=== PATIENT | female | born 1940 | race Caucasian/White ===

== ENCOUNTER → 2016-07-19 | Outpatient (CLI) | payer MEDICARE, OTHER | END | disposition home or self-care (01) | LOC: GMAH 12:03 | PROVIDERS: ATTEND Family Medicine | DX: E03.9 Hypothyroidism, unspecified (principal); E78.2 Mixed hyperlipidemia ==

== ENCOUNTER → 2016-11-07 | Outpatient (CLI) | payer MEDICARE, OTHER ==
--- NOTE | 2016-11-07 13:59 | MAM ---
History: Well woman exam. Date of exam: 11/07/2016 Services provided: Bilateral full field digital screening mammography. CAD, the images were reviewed with R2 computer aided detection. FINDINGS: Glandular tissue is scattered glandular contour. Comparison with 2013 exam. No dominant mass, architectural distortion or clustered microcalcification. IMPRESSION: Benign exam Recommendation: Routine annual mammography BIRAD CATEGORY: 2 BENIGN Electronically signed by: Teressa Patel MD 11/07/2016 1:59 PM CDT Workstation: [id number]
== END | disposition home or self-care (01) ==
LOC: MAMMO 09:39
PROVIDERS: ATTEND Family Medicine
DX: Z12.31 Encounter for screening mammogram for malignant neoplasm of breast (principal)

== ENCOUNTER → 2017-07-30 | Outpatient (CLI) | payer MEDICARE, OTHER | LOC: GMAH 10:44 | PROVIDERS: ATTEND Family Medicine | DX: E03.9 Hypothyroidism, unspecified (principal); E78.2 Mixed hyperlipidemia; I10 Essential (primary) hypertension ==

== ENCOUNTER → 2017-09-22 | Outpatient (CLI) | payer MEDICARE, OTHER ==
--- NOTE | 2017-09-22 09:18 | RAD ---
EXAM DESCRIPTION: Hand,Right 3 Views CLINICAL HISTORY: PAIN IN RIGHT HAND COMPARISON: None Available. TECHNIQUE: AP, LATERAL, AND OBLIQUE FINDINGS: Three-view right hand shows no fracture or dislocation. Moderate narrowing of the DIP joints. There is no bone lesion. Osteoarthritic narrowing of the first metacarpal phalangeal joint is seen with degenerative changes of the lateral carpus and spurring at the radial styloid. There is calcification of the right triangular fibrocartilage and narrowing of radiocarpal joint. Mild narrowing of the metacarpal phalangeal joints, second through fifth. DIP and PIP joint space narrowing of mild to moderate degree is seen and the lateral view shows dorsal spurring at the DIP joints. IMPRESSION: Degenerative changes as described. Electronically signed by: Kole Murdock MD 09/22/2017 9:17 AM CDT
== END ==
LOC: RAD 08:05
PROVIDERS: ATTEND Orthopaedic Surgery
DX: M79.644 Pain in right finger(s) (principal)

== ENCOUNTER → 2017-10-07 | Outpatient (CLI) | payer MEDICARE, OTHER | LOC: RESP 10-06 08:43 | PROVIDERS: ATTEND Orthopaedic Surgery | DX: Z01.818 Encounter for other preprocedural examination (principal) ==

== ENCOUNTER 2017-10-21 05:47 | Day surgery (SDC) | payer MEDICARE, OTHER ==
--- NOTE | 2017-10-20 09:45 | HP ---
CHIEF COMPLAINT: Right third digit pain. HISTORY OF PRESENT ILLNESS: Ms. Chi is a 77-year-old female with a history of pain in the right third digit. The pain has been there for quite some time and has been locking on her as well. Because of the pain and the locking, she has requested operative intervention. After discussing the risks, benefits and alternatives to that, the patient has given informed consent for trigger finger release. PAST SURGICAL HISTORY: 1. Hysterectomy. 2. Tonsillectomy. 3. Hemorrhoidectomy. MEDICATIONS: 1. Simvastatin. 2. Levothyroxine. 3. Benadryl. ALLERGIES: NO KNOWN DRUG ALLERGIES. CODE STATUS: Full code. IMMUNIZATIONS: Up to date. SOCIAL HISTORY: The patient does not drink, smoke or use any illicit drugs. FAMILY HISTORY: None pertinent to today's complaint. REVIEW OF SYSTEMS: Negative except as indicated in the History of Present Illness. PHYSICAL EXAMINATION: VITAL SIGNS: Blood pressure 130/81. Pulse 88. Height 5'6". Weight 171 pounds. MENTAL STATUS: The patient is awake, alert, and is able to give a good history and participate in the physical. The patient is oriented to person, place and time. SKIN: Normal tone and turgor. MUSCULOSKELETAL: She has tenderness over the A1 ahsan of the third digit with palpable clicking. Sensation is intact. It is warm and well perfused. She does have some difficulty at terminal extension secondary to discomfort and stiffness. Otherwise, she has intact range of motion in all digits. ASSESSMENT: 1. Trigger finger. PLAN: The plan at this point is for trigger finger release. We have discussed the risks, benefits, and alternatives to that and the patient has given informed consent. #[id number] [facility]
[2017-10-21] MEDS ORDERED: SODIUM CHL 0.9% 100ML MINI-BAG 100 ML IVPB ONE (06:58)
[2017-10-21] MEDS ORDERED: LACTATED RINGERS 1,000 ML ONE (06:58)
[2017-10-21] MEDS ORDERED: ceFAZolin SODIUM 1 GM VIAL ONE (06:59)
[2017-10-21] MEDS ORDERED: BUPIVACAINE 0.25% INJ 30 ML VIAL INJ ONE (07:23)
[2017-10-21] MEDS ORDERED: LIDOCAINE 1% 50 ML VIAL INJ ONE (07:23)
[2017-10-21] MEDS ORDERED: fentaNYL CITRATE INJ 50 MCG/ML AMP ONE (08:20)
[2017-10-21] MEDS: VANCOMYCIN HCL INJ 1,000 MG VIAL IVPB ONE ×2 (08:50→08:56)
[2017-10-21] MEDS: ceFAZolin SODIUM 1 GM VIAL ONE ×2 (08:50→08:56)
[2017-10-21] MEDS ORDERED: LIDOCAINE 1% 10 ML VIAL INJ ONE (09:00)
[2017-10-21] MEDS ORDERED: PROPOFOL 200 MG/20 ML VIAL IV ONE (09:00)
[2017-10-21 10:48] VITALS: BP 179/90; TEMP 96.5; O2SAT 96
--- NOTE | 2017-10-22 09:14 | OP ---
DATE OF PROCEDURE: 10/21/17 PREOPERATIVE DIAGNOSIS: 1. Trigger finger. POSTOPERATIVE DIAGNOSIS: 1. Trigger finger. PROCEDURE: 1. Trigger finger release. SURGEON: Romain Velez MD. TEAM MEMBER: Jerman Randall CST, SA-C. ANESTHESIA: Local with sedation. COMPLICATIONS: None. FINDINGS: Triggering at the A1 ahsan of the third digit. INDICATION: Ms. Chi has a long history of triggering at the A1 ahsan. Because of her triggering, pain and ongoing locking, she has requested operative intervention. After discussing the risks, benefits and alternatives to operative therapy, the patient has given informed consent for that. PROCEDURE: The patient was brought to the Operating Room and placed in the supine position. Sedation was administered and local anesthetic was injected into the operative area. Following injection, the arm was sterilely prepped and draped. A transverse incision was made directly overlying the A1 ahsan of the triggering digit and blunt dissection was carried down to the ahsan while protecting the digital nerves. After identification of the ahsan, the ahsan was transected and a [place] elevator was passed both proximally and distally to ensure complete release. The finger was flexed and extended and there was no evidence of locking or clicking. The wound was thoroughly irrigated and closed with Nylon suture. A sterile dressing was placed and the patient was taken to the Day Surgery Unit. POSTOPERATIVE INSTRUCTIONS: She has been encouraged to do range of motion of the digits and she will followup with us in 2 days. #[id number] [facility]
== END 2017-10-21 10:12 | disposition home or self-care (01) ==
LOC: AMB 05:47
PROVIDERS: ATTEND Orthopaedic Surgery
DX: M65.331 Trigger finger, right middle finger (principal); Z79.899 Other long term (current) drug therapy
CPT/HCPCS: 01810; 26055; J0690; J3010; J3370; J3490; J7050; J7120

== ENCOUNTER → 2018-07-24 | Outpatient (CLI) | payer MEDICARE, OTHER ==
--- NOTE | 2018-07-24 15:22 | RAD ---
EXAM DESCRIPTION: Knee,Left Complete CLINICAL HISTORY: 78 years Female, LEFT KNEE PAIN. PRIMARY OSTEOARTHRITIS COMPARISON: February 06, 2016 FINDINGS: Four views of the left knee show no acute fracture or malalignment. Moderate to moderately advanced tricompartmental degenerative changes are noted including joint space narrowing and osteophyte formation, worse in the patellofemoral compartment with [id number] alignment laterally, unchanged from January,. No joint effusion. Chondrocalcinosis in the medial compartment is also likely of degenerative origin. IMPRESSION: Advanced degenerative changes in the patellofemoral compartment with less advanced degenerative changes in the medial and lateral compartments. No acute left knee abnormality. Electronically signed by: Carlos Keller MD 07/24/2018 3:19 PM [facility]
--- NOTE | 2018-07-24 15:24 | RAD ---
EXAM DESCRIPTION: Pelvis CLINICAL HISTORY: LEFT HIP PAIN. COMPARISON: None. IMPRESSION: Single AP supine view of the pelvis shows diffuse osteopenia the osseous structures. No acute fracture, focal bone destruction, or joint dislocation is seen. Moderate osteoarthritic changes of the hips are seen left greater than right. Severe disc degenerative changes of the lumbar spine are noted. Evaluation for fracture is limited given the degree of osteopenia. If high clinical concern for acute fracture, correlation with MRI recommended given its greater sensitivity in the osteopenic patient. If the patient cannot tolerate MRI imaging or more urgent imaging is required, CT could be performed, however it is less sensitive in the osteopenic patient when compared to MRI. Electronically signed by: Caleb Krueger MD 07/24/2018 3:21 PM [facility]
== END ==
LOC: RESP 09:41
PROVIDERS: ATTEND Orthopaedic Surgery
DX: Z01.818 Encounter for other preprocedural examination (principal); M17.12 Unilateral primary osteoarthritis, left knee; M16.0 Bilateral primary osteoarthritis of hip; M51.36 Other intervertebral disc degeneration, lumbar region; M25.552 Pain in left hip

== ENCOUNTER 2018-08-25 05:37 | Inpatient (IN) | payer MEDICARE, OTHER ==
--- NOTE | 2018-08-24 09:24 | HP ---
CHIEF COMPLAINT: Left knee pain. HISTORY OF PRESENT ILLNESS: Ms. Chi is an 78-year-old female with a history of pain in the knee that has been refractory to conservative measures. She has had no trauma related to this, denies any radiation of pain and denies any neurologic symptoms. She has had injections as well as therapy and ongoing anti-inflammatory use, however, has failed to gain relief. Because of her ongoing symptoms, she has requested operative intervention. After discussing the risks, benefits and alternatives to that, she has given informed consent. PAST SURGICAL HISTORY: 1. Hysterectomy. 2. Tonsillectomy. 3. Herniorrhaphy. 4. Trigger finger release. MEDICATIONS: 1. Simvastatin. 2. Levothyroxine. 3. Benadryl. ALLERGIES: NO KNOWN DRUG ALLERGIES. SOCIAL HISTORY: The patient does not drink, smoke or use any illicit drugs. REVIEW OF SYSTEMS: Negative except as indicated in the History of Present Illness. PHYSICAL EXAMINATION: VITAL SIGNS: Blood pressure 152/93. Pulse 99. Height 5'6". Weight 177 pounds. MENTAL STATUS: The patient is awake, alert, and is able to give a good history and participate in the physical. The patient is oriented to person, place and time. SKIN: Normal tone and turgor. HEENT: Normocephalic, atraumatic. Pupils equal, round and reactive. Mucosal membranes are moist. NECK: Normal range of motion. No thyromegaly, no lymphadenopathy. CHEST: Normal respiratory excursion. CARDIAC: Regular rate and rhythm. No murmurs, rubs or gallops. MUSCULOSKELETAL: The bilateral upper extremities show full active range of motion. She has intact sensation and they are warm and well perfused. She has 5/5 strength, no crepitus and no deformity. There is no obvious malalignment. The right lower extremity shows full extension of the knee. She has no significant pain with range of motion of the hip. She has minor tenderness with range of motion of the knee as well as to palpation. Flexion is to 110 degrees. The left knee shows lack of about 5 degrees of extension. She has intact sensation. She flexes to about 105 degrees. She has no varus/valgus or anterior/posterior laxity. She has crepitus throughout her range of motion. IMAGING: X-rays show severe arthritis. ASSESSMENT: 1. Arthritis. PLAN: The plan at this point is for total knee arthroplasty. We have discussed the risks, benefits, and alternatives to that and the patient has given informed consent. [id number] [facility]
[2018-08-25] MEDS ORDERED: TRANEXAMIC ACID 1,000 MG/10 ML VIAL ONE ×2 (05:41→05:42)
[2018-08-25] MEDS ORDERED: ceFAZolin SODIUM 1 GM VIAL ONE ×2 (05:41→06:32)
[2018-08-25] MEDS ORDERED: SODIUM CHL 0.9% 100ML MINI-BAG 100 ML IVPB ONE (05:41)
[2018-08-25] MEDS ORDERED: VANCOMYCIN HCL INJ 1,000 MG VIAL IVPB ONE ×3 (05:41→19:23)
[2018-08-25] MEDS ORDERED: LACTATED RINGERS 1,000 ML ONE (05:41)
[2018-08-25] MEDS ORDERED: SODIUM CHLORIDE 0.9% 250ML 250 ML ONE ×3 (05:42→19:22)
[2018-08-25] MEDS ORDERED: SODIUM CHLORIDE 0.9% 100ML 100 ML IVPB ONE (05:42)
[2018-08-25] MEDS ORDERED: MIDAZOLAM INJ 2 MG/2 ML VIAL ONE (06:30)
[2018-08-25] MEDS ORDERED: MORPHINE SULFATE *EPIDURAL* 0.5 MG/ML VIAL ONE (06:30)
[2018-08-25] MEDS ORDERED: ACETAMINOPHEN IV 1000MG 100 ML ONE (06:31)
[2018-08-25] MEDS ORDERED: fentaNYL CITRATE INJ 50 MCG/ML AMP ONE (06:31)
[2018-08-25] MEDS ORDERED: ZOLPIDEM TARTRATE 5 MG TAB PO PRN (07:18)
[2018-08-25] MEDS ORDERED: NALOXONE HCL INJ 0.4 MG/ML VIAL IV PRN (07:18)
[2018-08-25] MEDS ORDERED: BENZOCAINE-MENTH LOZ (CEPACOL) 1 EA LOZ MT PRN (07:18)
[2018-08-25] MEDS ORDERED: MORPHINE SULFATE INJ 10 MG/ML VIAL IM PRN (07:18)
[2018-08-25] MEDS ORDERED: SODIUM CHLORIDE 0.9% (FLUSH) 10 ML SYG IV PRN (07:18)
[2018-08-25] MEDS ORDERED: ACETAMINOPHEN 325 MG TAB PO PRN (07:18)
[2018-08-25] MEDS ORDERED: PROMETHAZINE HCL INJ 12.5 MG in SODIUM CHLORIDE 0.9% 50ML 50 ML IVPB PRN (07:18)
[2018-08-25] MEDS ORDERED: MAGNESIUM HYDROXIDE 30 ML UD PO PRN (07:18)
[2018-08-25] MEDS ORDERED: DEX 5% W/NACL 0.45% 1000ML 1,000 ML IVS PRN (07:18)
[2018-08-25] MEDS ORDERED: MORPHINE SULFATE INJ 10 MG/ML VIAL IV PRN (07:18)
[2018-08-25] MEDS ORDERED: PROMETHAZINE HCL INJ 25 MG in SODIUM CHLORIDE 0.9% 50ML 50 ML IVPB PRN (07:18)
[2018-08-25] MEDS ORDERED: ONDANSETRON INJ 4 MG/2 ML VIAL IV PRN (07:18)
[2018-08-25] MEDS ORDERED: ACETAMINOPHEN 500 MG TAB PO PRN (07:18)
[2018-08-25] MEDS ORDERED: TRANEXAMIC ACID INJ 1,000 MG in SODIUM CHLORIDE 0.9% 100ML 100 ML IVPB ONE (07:18)
[2018-08-25] MEDS ORDERED: ALUMINUM & MAGNESIUM HYDROXIDE 30 ML UD PO PRN (07:18)
[2018-08-25] MEDS ORDERED: BISACODYL SUPPOSITORY 10 MG PR PRN (07:18)
[2018-08-25] MEDS ORDERED: MORPHINE PCA 1 MG/ML 100 ML BAG IVPB SCH (07:30)
[2018-08-25] MEDS ORDERED: BUPIVACAINE LIPOSOME 13.3 MG/ML VIAL INJ ONE (07:39)
[2018-08-25] MEDS: BUPIVACAINE LIPOSOME 13.3 MG/ML VIAL INJ ONE ×2 (07:40→08:41)
[2018-08-25] MEDS: BUPIVACAINE 0.5% 30 ML VIAL INJ ONE ×2 (07:40→08:41)
[2018-08-25] MEDS: VANCOMYCIN HCL INJ 1,000 MG VIAL IVPB ONE ×2 (07:40→08:45)
[2018-08-25] MEDS: ceFAZolin SODIUM 1 GM VIAL ONE ×2 (07:40→08:45)
[2018-08-25] MEDS ORDERED: ELECTROLYTE-A 1,000 ML IVS ONE (08:46)
[2018-08-25] MEDS ORDERED: ONDANSETRON INJ 4 MG/2 ML VIAL IV ONE (10:00)
[2018-08-25] MEDS ORDERED: PROPOFOL 200 MG/20 ML VIAL IV ONE (10:00)
[2018-08-25] MEDS ORDERED: MORPHINE PCA 1 MG/ML 100 ML BAG IVPB ONE (10:00)
[2018-08-25] MEDS ORDERED: LIDOCAINE 1% 10 ML VIAL INJ ONE (10:00)
[2018-08-25] MEDS ORDERED: ePHEDrine SULF 50 MG/ML IV ONE (10:00)
[2018-08-25] MEDS ORDERED: DEXAMETHASONE INJ 10 MG/ML VIAL IV ONE (10:00)
[2018-08-25] MEDS ORDERED: LACTATED RINGERS 1,000 ML IVS ONE (10:30)
[2018-08-25] MEDS: CELECOXIB 100 MG CAP PO SCH ×2 (12:35→17:39)
[2018-08-25] MEDS: IV SET AND CAP CHANGE INJ INJ SCH (12:44)
[2018-08-25] MEDS: MAGNESIUM OXIDE 400 MG TAB PO SCH (12:45)
[2018-08-25] MEDS ORDERED: diphenhydrAMINE HCL 50 MG/ML VIAL ONE (12:57)
[2018-08-25] MEDS: diphenhydrAMINE HCL 50 MG/ML VIAL IV PRN (13:06)
[2018-08-25] MEDS ORDERED: ceFAZolin SODIUM 2 GRAMS PREMI 50 ML IVPB ONE ×2 (15:34→19:23)
[2018-08-25] MEDS: ceFAZolin SODIUM 2 GRAMS PREMI 2 GM in PREMIX BAG 1 BAG IVPB SCH (15:42)
--- NOTE | 2018-08-25 16:09 | RAD ---
EXAM DESCRIPTION: Knee,Left 2 or More Views CLINICAL HISTORY: 78 yearsFemale, TKA COMPARISON: 07/24/2018 IMPRESSION: There are operative changes of a left total knee arthroplasty. Components appear in excellent alignment, with no complicating features. There is postoperative gas in the soft tissues. Electronically signed by: Gadiel Long MD 08/25/2018 4:06 PM CDT
--- NOTE | 2018-08-25 16:10 | RAD ---
EXAM DESCRIPTION: Fluoroscopy Up to 1Hr CLINICAL HISTORY: LEFT TKA COMPARISON: None. IMPRESSION: Spot fluoroscopic intraoperative view of the left knee during total knee arthroplasty was obtained. No extra exposure images are obtained. Less than 1 minute of intraoperative fluoroscopy time was utilized. Electronically signed by: Calbe Krueger MD 08/25/2018 4:07 PM CDT
[2018-08-25] MEDS: VANCOMYCIN HCL INJ 1,000 MG in SODIUM CHLORIDE 0.9% 250ML 250 ML IVPB SCH (17:44)
[2018-08-25] MEDS ORDERED: PANTOPRAZOLE SODIUM TAB 40 MG PO ONE (19:23)
[2018-08-25] MEDS ORDERED: ENOXAPARIN SODIUM 30 MG/0.3 ML SYG SUBCU ONE (19:23)
[2018-08-25] MEDS: NON-FORMULARY MEDICATION 1 EA MIS PO SCH (20:03)
[2018-08-25] MEDS: PANTOPRAZOLE SODIUM IV 40 MG VIAL IV SCH (20:37)
--- NOTE | 2018-08-25 20:59 | CONS ---
DATE OF CONSULTATION: 08/25/18 SUPERVISING PHYSICIAN: Jerzy Pappas M.D. REASON FOR CONSULTATION: Left total knee arthroplasty. HISTORY OF PRESENT ILLNESS: This is an 78 year-old female patient that has had a history of left knee pain for several years. It was actually recommended that she have a knee replacement 2 years ago. She tried conservative measures and they failed to relieve her pain. She requested Dr. Romain Velez for operative intervention for a left total knee arthroplasty. There were no intraoperative problems and I am seeing the patient in consultation postoperatively on the Medical/Surgical floor. PAST MEDICAL HISTORY: 1. Hyperlipidemia. 2. Hypertension. 3. Bilateral knee pain. 4. Hypothyroidism. 5. Gastroesophageal reflux disease. 6. Chronic constipation. PAST SURGICAL HISTORY: 1. Hysterectomy. 2. Tonsillectomy. 3. Trigger release surgery. 4. Cataract surgery. HOME MEDICATIONS: 1. Levothyroxine. 2. Multivitamins. 3. Temazepam. 4. Cascara sagrada. 5. Nexium. ALLERGIES: NO KNOWN DRUG ALLERGIES. FAMILY HISTORY: Heart problems and hypothyroidism. SOCIAL HISTORY: She is retired. She is . She denies smoking, ETOH or illicit drug use. REVIEW OF SYSTEMS: Negative except as per History of Present Illness. PHYSICAL EXAMINATION: VITAL SIGNS: Temperature 98.1, blood pressure 151/72, respiratory rate 20, O2 sat 98% on 2 liters nasal cannula. GENERAL: This is an 78 year-old female patient who looks younger than her stated age. She is in no acute distress. HEENT: Normocephalic and atraumatic. Pupils are equal and reactive. Oropharynx is clear. NECK: Supple without mass. RESPIRATORY: Essentially clear to auscultation bilaterally. HEART: Regular rate and rhythm. GASTROINTESTINAL: Abdomen is soft, nondistended, non-tender. Bowel sounds are positive. EXTREMITIES: She has a dressing to her left knee that is dry and intact. She has has an Iceman in place. Bilateral pedal pulses are palpable at +2. NEUROLOGIC: She is awake, alert and oriented times three. LABORATORY: There are no labs or films to report at this time. IMPRESSION: 1. Left knee pain secondary to osteoarthritis after failing conservative measures status post left total knee arthroplasty performed by Dr. Romain Velez, postoperative day #0. PLAN: We will continue present supportive care. Orthopedic issues will be per Dr. Romain Velez, orthopedic surgeon. She will begin her physical therapy for strengthening and conditioning tomorrow. I have also given her an additional dose of Protonix IV as she is quite worried about her GERD. She will restart her Nexium tomorrow. She also had been taking Cascara for chronic constipation for over [address] Barboza, her finisher denture, has okayed that she continue the use of that for her chronic constipation, so I have restarted that and she can take her own medications. I have also restarted all of her other home medications. We will continue to follow her closely and treat as needed. #[id number] [facility]
[2018-08-25] MEDS ORDERED: CASCARA SAGRADA PO SCH (21:00)
[2018-08-25] MEDS ORDERED: DOCUSATE CALCIUM 240 MG CAP PO SCH (21:00)
[2018-08-25] MEDS: ENOXAPARIN SODIUM 30 MG/0.3 ML SYG SUBCU SCH (23:00)
[2018-08-26] MEDS: TEMAZEPAM 15 MG CAP PO PRN (00:05)
[2018-08-26] MEDS: traMADol HCL 50 MG TAB PO PRN (04:59)
[2018-08-26] MEDS: VANCOMYCIN HCL INJ 1,000 MG in SODIUM CHLORIDE 0.9% 250ML 250 ML IVPB SCH (06:12)
[2018-08-26] MEDS: PANTOPRAZOLE SODIUM TAB 40 MG PO SCH (06:12)
[2018-08-26] MEDS ORDERED: ceFAZolin SODIUM 2 GRAMS PREMI 50 ML IVPB ONE (07:23)
[2018-08-26] MEDS: CELECOXIB 100 MG CAP PO SCH ×2 (07:35→17:11)
[2018-08-26] MEDS: ceFAZolin SODIUM 2 GRAMS PREMI 2 GM in PREMIX BAG 1 BAG IVPB SCH ×2 (08:08)
[2018-08-26] MEDS: SODIUM CHLORIDE 0.9% (FLUSH) 10 ML SYG IV SCH (08:14)
[2018-08-26] MEDS: LEVOTHYROXINE SODIUM 0.025 MG TAB PO SCH (09:22)
[2018-08-26] MEDS: MAGNESIUM OXIDE 400 MG TAB PO SCH (09:22)
[2018-08-26] MEDS: ENOXAPARIN SODIUM 30 MG/0.3 ML SYG SUBCU SCH ×2 (11:13→22:52)
[2018-08-26] MEDS: HYDROcodone 5MG/APAP 325MG 1 EA TAB PO PRN (13:37)
[2018-08-26] MEDS: CYCLOBENZAPRINE HCL 10 MG TAB PO PRN (14:03)
[2018-08-26] MEDS: diphenhydrAMINE HCL 50 MG/ML VIAL IV PRN (18:30)
--- NOTE | 2018-08-26 19:04 | PN ---
DATE: 08/26/18 SUPERVISING PHYSICIAN: Jerzy Pappas M.D. SUBJECTIVE: The patient is sitting up in her recliner in her hospital room. She is eating her meal. [place] that she did quite well during her physical therapy today and has had several issues with pain control, but her pain has been controlled for the last several hours and she feels much better. She has had no complaints of nausea, vomiting or diarrhea. She does have complaints of constipation but she has requested a Dulcolax suppository in addition to her routine Cascara. OBJECTIVE: VITAL SIGNS: She is afebrile at 97.8, heart rate 88, blood pressure 154/84, respiratory rate 16, O2 sat 98% on 2 liters nasal cannula. RESPIRATORY: Essentially clear to auscultation bilaterally. CARDIAC: Regular rate and rhythm. GASTROINTESTINAL: Abdomen is soft, nondistended, non-tender. Bowel sounds are positive. EXTREMITIES: She has a dressing to her left knee that is dry and intact. Bilateral pedal pulses are palpable at +2. NEUROLOGIC: She is awake, alert and oriented times three. LABORATORY: Hemoglobin and hematocrit are 12.5 and 38.6. All other labs and films have been reviewed via the EMR. ASSESSMENT: 1. Left knee pain secondary to osteoarthritis after failing conservative measures status post left total knee arthroplasty performed by Dr. Romain Velez, postoperative day #1. 2. Hypertension, stable on medications. 3. Hyperlipidemia. 4. Hypothyroidism. 5. Gastroesophageal reflux disease. 6. Chronic constipation. PLAN: We will continue present supportive care, including aggressive pulmonary hygiene. Orthopedic issues will be per Dr. Romain Velez, orthopedic surgeon. She will continue with physical therapy for strengthening and conditioning. Otherwise we will continue to monitor closely and follow as needed. [id number]
[2018-08-26] MEDS ORDERED: SODIUM PHOS/BIPHOS ENEMA ADULT 133 ML BTTL PR ONE (19:45)
[2018-08-26] MEDS: NON-FORMULARY MEDICATION 1 EA MIS PO SCH (20:14)
[2018-08-26] MEDS: PANTOPRAZOLE SODIUM IV 40 MG VIAL IV SCH (21:30)
[2018-08-27] MEDS: PANTOPRAZOLE SODIUM TAB 40 MG PO SCH (06:35)
--- NOTE | 2018-08-27 07:53 | PN ---
DATE: 08/25/18 POSTOPERATIVE CHECK SUBJECTIVE: Ms. Chi is doing well. He has no pain. OBJECTIVE: Afebrile. Vital signs stable. Dressing is clean, dry and intact. ASSESSMENT: Status post total knee arthroplasty. PLAN: The plan at this point is for her to continue with CPM and begin weightbearing as tolerated on postoperative day 1. #[id number] [facility]
--- NOTE | 2018-08-27 07:54 | PN ---
DATE: 08/26/18 SUBJECTIVE: Ms. Chi is doing well and her pain is being well controlled. OBJECTIVE: Afebrile. Vital signs stable. Dressing is clean, dry and intact. ASSESSMENT: Status post total knee arthroplasty. PLAN: The plan at this point is for her to begin weightbearing as tolerated today. #[id number] [facility]
--- NOTE | 2018-08-27 08:01 | OP ---
DATE OF PROCEDURE: 08/25/18 PREOPERATIVE DIAGNOSIS: 1. Osteoarthritis of the knee. POSTOPERATIVE DIAGNOSIS: 1. Osteoarthritis of the knee. PROCEDURE: 1. Total knee arthroplasty. SURGEON: Romain Velez MD. SCIENTOLOGIST: Jerman Randall CST, SA-C. ANESTHESIA: General anesthesia. COMPLICATIONS: None. FINDINGS: Severe osteoarthritis. INDICATION: Ms. Chi has a long history of knee pain that has been refractory to conservative measures. Because of the refractory nature of her pain, she has requested operative intervention. After discussing the risks, benefits and alternatives to that, the patient has given informed consent for total knee arthroplasty. PROCEDURE: The patient was brought to the Operating Room and placed in supine position. General anesthesia was induced and the patient's leg was sterilely prepped and draped. Following prepping and draping, the distal femur was exposed and using an intramedullary guide, the distal femoral cut was made. The appropriate sized cutting block was measured, pinned into place, and the anterior, posterior, and chamfer cuts were made. The ACL was transected and the tibia was subluxed. Both the medial and lateral menisci were removed. An intramedullary guide was used to make the proximal tibial cut. The appropriate sized base plate was placed and a trial polyethylene was placed. The trial femur was placed, the knee was reduced, and the knee was taken through a range of motion. The knee was stable in anterior, posterior, varus and valgus stress. The patella tracked anatomically without evidence of subluxation or dislocation. After trialing, the trial components were removed and the bony surfaces were thoroughly irrigated with saline. Following irrigation, the surfaces were dried and the final components were cemented into place. The excess cement was removed and the remaining cement was allowed to cure. The knee was again taken through a range of motion to confirm stability. The wound was then irrigated with saline and closure was performed using PDS to approximate the arthrotomy followed by closure of the subcutaneous tissues with a combination of running and interrupted Monocryl sutures. Sterile dressing was placed. The patient was awoken from anesthesia and taken to Recovery. POSTOPERATIVE PLAN: The patient will be weight-bearing as tolerated on postoperative day 1. COMPONENTS: [facility] Tri[facility] knee, size 4 femur, size 4 tibia, 9 mm insert. #[id number] [facility]
[2018-08-27] MEDS: MAGNESIUM OXIDE 400 MG TAB PO SCH (09:01)
[2018-08-27] MEDS: CELECOXIB 100 MG CAP PO SCH ×2 (09:01→17:17)
[2018-08-27] MEDS: LEVOTHYROXINE SODIUM 0.025 MG TAB PO SCH (09:01)
[2018-08-27] MEDS: SODIUM CHLORIDE 0.9% (FLUSH) 10 ML SYG IV SCH ×2 (09:02→21:08)
[2018-08-27] MEDS: ENOXAPARIN SODIUM 30 MG/0.3 ML SYG SUBCU SCH ×2 (09:07→23:10)
[2018-08-27] MEDS: HYDROcodone 5MG/APAP 325MG 1 EA TAB PO PRN ×2 (11:43→20:04)
--- NOTE | 2018-08-27 13:25 | PN ---
DATE: 08/27/18 SUBJECTIVE: Ms. Chi is doing well. She is up to a chair and has the knee bent at 90 degrees. OBJECTIVE: Afebrile. Vital signs stable. Wound is clean. There are no signs or symptoms of infection. ASSESSMENT: Status post total knee arthroplasty. PLAN: The plan at this point is for her to continue with weightbearing as tolerated. We will continue to work with her in therapy and she will be discharged when all goals are met. [facility][id number] [facility]
[2018-08-27] MEDS: NON-FORMULARY MEDICATION 1 EA MIS PO SCH (20:06)
[2018-08-27] MEDS: CYCLOBENZAPRINE HCL 10 MG TAB PO PRN (23:10)
[2018-08-28] MEDS ORDERED: LEVOTHYROXINE SODIUM 0.025 MG TAB ONE (02:44)
[2018-08-28] MEDS: HYDROcodone 5MG/APAP 325MG 1 EA TAB PO PRN ×2 (03:29→08:00)
[2018-08-28] MEDS: LEVOTHYROXINE SODIUM 0.025 MG TAB PO SCH (06:26)
[2018-08-28] MEDS: PANTOPRAZOLE SODIUM TAB 40 MG PO SCH (06:27)
--- NOTE | 2018-08-28 07:55 | PN ---
SUPERVISING PHYSICIAN: Lucas Pappas MD DATE: 08/27/18 SUBJECTIVE: The patient is sitting up in her bed. Her daughter is at the bedside. She has no complaints of nausea, vomiting, excessive pain, chest pain or shortness of breath. She does still complain of some constipation which is chronic in nature. She has had laxative today as well as an enema. She has had a small amount of stool, otherwise, minimal results. OBJECTIVE: VITAL SIGNS: Temperature 98.5. Heart rate 88. Blood pressure 121/74. Respiratory rate 16. O2 saturation 93% on room air. RESPIRATORY: Essentially clear to auscultation bilaterally. CARDIAC: Regular rate and rhythm. GASTROINTESTINAL: Abdomen is soft, nondistended, nontender. Bowel sounds are positive. EXTREMITIES: She has an Iceman and her CPM on her left leg. Her dressing to her left knee is dry and intact. Bilateral pedal pulses are palpable at +2. NEUROLOGIC: She is awake, alert and oriented times three. LABORATORY: There are no labs and films to report at this time. ASSESSMENT: 1. Left knee pain secondary to osteoarthritis after failing conservative measures status post left total knee arthroplasty performed by Dr. Romain Velez, postoperative day #2. 2. Hypertension, stable on medications. 3. Hyperlipidemia. 4. Hypothyroidism. 5. Gastroesophageal reflux disease. 6. Chronic constipation. PLAN: We will continue present supportive care. She will continue with physical therapy tomorrow for strengthening and conditioning. Orthopedic issues will be per Dr. Romain Velez, orthopedic surgeon. Encourage good pulmonary hygiene. She has several laxatives ordered as well as enema as needed for constipation. She will have [facility] after discharge with their physical therapy department. We will continue to monitor closely and follow as needed. #[id number] [facility]
[2018-08-28] MEDS: CELECOXIB 100 MG CAP PO SCH ×2 (07:59→18:11)
[2018-08-28] MEDS: MAGNESIUM OXIDE 400 MG TAB PO SCH (08:43)
[2018-08-28] MEDS: SODIUM CHLORIDE 0.9% (FLUSH) 10 ML SYG IV SCH ×2 (08:47→20:16)
--- NOTE | 2018-08-28 09:01 | PN ---
DATE: 08/28/18 SUBJECTIVE: Ms. Chi is doing well. She has been up ambulating. OBJECTIVE: Afebrile. Vital signs stable. Wound is clean. There are no signs or symptoms of infection. ASSESSMENT: Status post total knee arthroplasty. PLAN: The plan for Ms. Chi is for her to continue with her weightbearing status. She will likely be discharged in the next 1 to 2 days. [facility][id number] [facility]
[2018-08-28] MEDS: ENOXAPARIN SODIUM 30 MG/0.3 ML SYG SUBCU SCH ×2 (10:33→22:06)
[2018-08-28] MEDS: traMADol HCL 50 MG TAB PO PRN (13:39)
[2018-08-28] MEDS ORDERED: SODIUM PHOS/BIPHOS ENEMA ADULT 133 ML BTTL PR ONE ×2 (18:07→18:10)
[2018-08-28] MEDS: IV SET AND CAP CHANGE INJ INJ SCH (19:45)
[2018-08-28] MEDS: NON-FORMULARY MEDICATION 1 EA MIS PO SCH (20:15)
[2018-08-28] MEDS: CYCLOBENZAPRINE HCL 10 MG TAB PO PRN (20:16)
[2018-08-28] MEDS ORDERED: BISACODYL SUPPOSITORY 10 MG PR ONE (21:00)
[2018-08-28] MEDS ORDERED: MAGNESIUM HYDROXIDE 30 ML UD PO ONE (21:00)
[2018-08-28] MEDS: TEMAZEPAM 15 MG CAP PO PRN (22:03)
[2018-08-29] MEDS: HYDROcodone 5MG/APAP 325MG 1 EA TAB PO PRN (02:11)
[2018-08-29] MEDS: traMADol HCL 50 MG TAB PO PRN ×2 (02:16→08:30)
[2018-08-29] MEDS: LEVOTHYROXINE SODIUM 0.025 MG TAB PO SCH (05:47)
[2018-08-29] MEDS: PANTOPRAZOLE SODIUM TAB 40 MG PO SCH (05:47)
[2018-08-29] MEDS: CELECOXIB 100 MG CAP PO SCH (07:30)
[2018-08-29] MEDS: SODIUM CHLORIDE 0.9% (FLUSH) 10 ML SYG IV SCH (09:00)
--- NOTE | 2018-08-29 10:06 | PN ---
SUPERVISING PHYSICIAN: MARY TORRES MD DATE: 08/28/18 SUBJECTIVE: The patient is showing good response to her physical therapy. She has good control of her pain. She has had no other complaints. OBJECTIVE: VITAL SIGNS: Temperature 98.6. Pulse 83. Blood pressure 114/75. Respiratory rate 20. Saturation 96% on room air. GENERAL: Patient appears to be comfortable and in no acute distress. RESPIRATORY: Lungs clear to auscultation. CARDIAC: Regular rate and rhythm. GASTROINTESTINAL: Abdomen is soft, nontender. Bowel sounds are positive. EXTREMITIES: Left knee has an Iceman in place. Distal pulses strong. Capillary refill brisk. NEUROLOGIC: She is alert and oriented times three. LABORATORY: There are no additional laboratory studies.. ASSESSMENT: 1. Left knee pain secondary to osteoarthritis after failing conservative measures status post left total knee arthroplasty performed by Dr. Romain Velez, postoperative day #3. 2. Hypertension, stable on medications. 3. Hyperlipidemia. 4. Hypothyroidism. 5. Gastroesophageal reflux disease. 6. Chronic constipation. PLAN: We will continue to follow patient as she progresses through her physical therapy and strengthening and conditioning. Will continue to encourage pulmonary hygiene. She still requires enemas and laxatives for constipation. She has [facility]. Arrange for discharge with physical therapy and until she can transition to outpatient management, will continue to monitor and treat as needed. #[id number] [facility]
[2018-08-29] MEDS: MAGNESIUM OXIDE 400 MG TAB PO SCH (10:11)
[2018-08-29 10:25] VITALS: BP 129/72; TEMP 98.5; O2SAT 95
[2018-08-29] MEDS: ENOXAPARIN SODIUM 30 MG/0.3 ML SYG SUBCU SCH (11:00)
--- NOTE | 2018-09-14 09:24 | DS ---
SUPERVISING PHYSICIAN: Jerzy Pappas MD ADMISSION DIAGNOSIS: 1. Left knee pain secondary to osteoarthritis after failing conservative measures status post left total knee arthroplasty performed by Dr. Romain Velez, postoperative day #0. DISCHARGE DIAGNOSIS: 1. Left knee pain secondary to osteoarthritis after failing conservative measures status post left total knee arthroplasty performed by Dr. Romain Velez, postoperative day #4. 2. Hypertension, stable on medications. 3. Hyperlipidemia. 4. Hypothyroidism. 5. Gastroesophageal reflux disease. 6. Chronic constipation. REASON FOR HOSPITALIZATION: Ms. Chi is an 78-year-old female with a history of pain in the knee that has been refractory to conservative measures. She has had no trauma related to this, denies any radiation of pain and denies any neurologic symptoms. She has had injections as well as therapy and ongoing anti-inflammatory use, however, has failed to gain relief. Because of her ongoing symptoms, she has requested operative intervention. After discussing the risks, benefit s and alternatives to that, she has given informed consent. LABORATORY: Postoperative hemoglobin 12.5 and hematocrit 38.6. Preoperative drug screen showed positive for benzodiazepines, otherwise negative for other substances tested. HOSPITAL COURSE: Ms. Chi was admitted on 08/25/18 for a left total knee arthroplasty. She had no intraoperative complications, was showing good clinical response to treatment and was doing well with physical therapy. She had good pain control and was felt well enough to continue with outpatient management. PLAN: Ms. Chi was discharged on 08/29/18 with instructions to followup with Dr. Velez as scheduled on 09/11/18 at 10:00 AM. She was to continue with physical therapy with [facility]. She was to resume her home medications as instructed and told to return to the hospital or call Dr. Velez if she had any concerning symptoms. Discharge Diet: Regular as tolerated. Activities: As per physical therapy with utilizing the walker. Wound management as per Dr. Velez's instruction. She could shower but no tube bath. Prescriptions prescribed at discharge include: 1. Flexeril 10 mg every 8 hours as needed, #15. 2. [place] 5/325, one every 6 hours as needed, #50, written by Dr. Velez. 3. Xarelto 10 mg daily, #7, no refills. DISPOSITION: Patient is discharged to care of family. Condition on documentation was stable and improving. #[id number] [facility]
== END 2018-08-29 12:50 | disposition home health service (06) | DRG 470 ==
LOC: AMB 05:37 → MS 10:25
PROVIDERS: ADMIT Orthopaedic Surgery; ATTEND Nurse Practitioner Family
PROC: 3E0T3BZ Introduction of Anesthetic Agent into Peripheral Nerves and Plexi, Percutaneous Approach (ICD-10-PCS; 2018-08-25)
PROC: 0SRD0J9 Replacement of Left Knee Joint with Synthetic Substitute, Cemented, Open Approach (ICD-10-PCS; principal; 2018-08-25 06:58)
DX: M17.12 Unilateral primary osteoarthritis, left knee (principal); I10 Essential (primary) hypertension; K21.9 Gastro-esophageal reflux disease without esophagitis; E78.5 Hyperlipidemia, unspecified; E03.9 Hypothyroidism, unspecified; K59.09 Other constipation; Z79.899 Other long term (current) drug therapy

== ENCOUNTER → 2019-02-02 | Outpatient (CLI) | payer MEDICARE, OTHER | LOC: GMA MATASK 10:23 | PROVIDERS: ATTEND Family Medicine | DX: I10 Essential (primary) hypertension (principal) ==

== ENCOUNTER → 2020-03-16 | Outpatient (CLI) | payer MEDICARE, OTHER | LOC: GMA MATASK 10:33 | PROVIDERS: ATTEND Family Medicine | DX: E03.9 Hypothyroidism, unspecified (principal); E78.2 Mixed hyperlipidemia ==